=== PATIENT | female | born 1995 | race Caucasian/White ===

== ENCOUNTER 2020-09-16 20:38 | Outpatient (CLI) | payer OTHER, SELFPAY ==
[2020-09-16 20:50] VITALS: BP 119/74; PULSE 88; TEMP 36.1; O2SAT 100
[2020-09-16 21:05] VITALS: BMI 29.5
[2020-09-16] MEDS: 0.9% Normal Saline 1,000 ML 999 ML IV (21:25)
[2020-09-16] MEDS: Ondansetron 4 MG/2 ML Vial IV (21:38)
[2020-09-16] MEDS: Morphine 4 MG/ML Syringe IV (21:38)
[2020-09-16 21:40] LABS: Color, Urine Yellow (Yellow); Glucose, Dipstick Normal (Normal); Ketone-Dipstick 15 mg/dl (Negative); Leukocyte Esterase-Dipstick Negative /ul (Negative); Nitrite-Dipstick Negative (Negative); Occult Blood-Urine 150 /ul (Negative); Protein-Dipstick 30 mg/dl (Negative); Specific Gravity, Urine 1.015 (1.002-1.030); Urine Bilirubin Dipstick Negative (Negative); Urine Clarity Sl. Cloudy (Clear); Urine Urobilinogen Normal (Normal)
[2020-09-16 21:54] VITALS: BP 110/57; PULSE 80; TEMP 36.6; O2SAT 99
[2020-09-16] MEDS: 0.9% Normal Saline 1,000 ML 250 ML IV (22:37)
[2020-09-16 22:39] VITALS: BP 118/71; PULSE 77; TEMP 36.3; O2SAT 99
[2020-09-16] MEDS: oxyCODONE 5 MG Tablet PO (23:21)
[2020-09-17 01:12] VITALS: O2SAT 99
[2020-09-17 01:13] VITALS: BP 119/78; PULSE 78; TEMP 36.2; O2SAT 99
--- NOTE | 2020-09-17 01:24 | NURSING ---
pt urine being strained. no stone present up to this point.
[2020-09-17] MEDS: 0.9% Normal Saline 1,000 ML 250 ML IV (02:22)
[2020-09-17] MEDS: Morphine 4 MG/ML Syringe IV ×2 (02:26→08:36)
[2020-09-17 04:38] VITALS: O2SAT 98
[2020-09-17 04:39] VITALS: BP 114/69; PULSE 82; TEMP 36.4; O2SAT 98
[2020-09-17] MEDS: oxyCODONE 5 MG Tablet PO (06:27)
[2020-09-17] MEDS: Ondansetron 4 MG/2 ML Vial IV (06:27)
[2020-09-17 06:28] VITALS: BP 118/75; PULSE 83; TEMP 36.4; O2SAT 98
[2020-09-17] MEDS: 0.9% Saline Lock 10 ML Syringe IV (06:28)
[2020-09-17 08:14] VITALS: BP 119/71; PULSE 82
--- NOTE | 2020-09-17 08:39 | OB.TRI.PN ---
Progress Notes Date of Service: 09/17/20 Progress Note: Aby reports she feels better today. Her pain is mild, still localized to her back and side. Denies contractions this morning. + FM, no leaking of fluid or vaginal bleeding. Vital Signs Temp 97.6 F L 09/17/20 06:28 Pulse 82 09/17/20 08:14 BP 119/71 09/17/20 08:14 Pulse Ox 98 09/17/20 06:28 Intake & Output 09/15/20 09/16/20 09/17/20 23:59 23:59 23:59 Intake Total 1000 / 1000 217.33 / 2172.33 Output Total 200 / 200 200 / 200 Balance 800 / 800 1972. / Weight: 82.917 kg Intake: Oral 240 / 240 Intake, IV Amount 1000 / 1000 1932.33 / 1932.33 0.9% Normal Saline 1,000 ML @ 193.33 / 1932.33 250 mls/hr IV .Q4H [facility] Rx#: [id number] 0.9% Normal Saline 1,000 ML @ 1000 / 1000 999 mls/hr IV .Q1H1M ONE Rx#: [id number] Output: Urine 100 / 100 200 / 200 Emesis 100 / 100 GEN - NAD, AAO x 3 CV - RRR BACK - CVA tenderness improved at right ABD - nontender, gravid FHR 125, moderate variability, + accelerations, no decelerations TOCO 0/10 Laboratory Studies: Laboratory Tests 09/16/20 Range/Units 21:20 Urine Color Yellow (Yellow) Urine Clarity Sl. Cloudy (Clear) Urine pH 7.0 (5.0 - 8.0) Ur Specific [place] 1.015 (1.002-1.030) Urine Protein 30 H (Negative) mg/dl Urine Glucose (UA) Normal (Normal) mg/dl Urine Ketones 15 H (Negative) mg/dl Urine Occult Blood 150 H (Negative) /ul Urine Nitrite Negative (Negative) Urine Bilirubin Negative (Negative) mg/dL Urine Urobilinogen Normal (Normal) mg/dl Ur Leukocyte Esterase Negative (Negative) /ul A/P: 24yo @ 32 4/7wga with nephrolithiasis, Cat I FHR -U/A with no evidence of infection -Will d/c home -Si/sx infection reviewed -Reviewed comfort measures for home. Pt has some Oxycodone left from the last time she had kidneys and will use this sparingly as needed for severe pain. -f/u with her credit assessment analyst as scheduled on 09/19/20
== END 2020-09-17 09:30 | disposition home or self-care (01) ==
LOC: WPOUT 20:50 → WP 09-19 11:06
PROVIDERS: Visit Provider Obstetrics & Gynecology
DX: O26.839 Pregnancy related renal disease, unspecified trimester (principal)
CPT/HCPCS: 96361 ×9; 96374; 96375; 96376; 36415; 59025; 59050; 81002; 87086; 87088; 99218; J7030; A4216; G0378; J2405